=== PATIENT | male | born 1945 | race Caucasian/White ===

== ENCOUNTER 2019-01-06 20:57 | Observation (INO) | payer MEDICARE ==
[2019-01-06] MEDS ORDERED: SODIUM CHLORIDE 0.9% 1,000 ML IV STA ×2 (21:30)
[2019-01-06] MEDS ORDERED: DILTIAZEM DRIP BOLUS FROM BAG 1 MG SOLN IV ONE (21:30)
[2019-01-06] MEDS ORDERED: DILTIAZEM 125 MG in SODIUM CHLORIDE 0.9% 100 ML IV SCH (21:30)
[2019-01-06 22:09] LABS: Basophils % (A) 1 %; Eosinophils # (A) 0.1 k/uL (0-0.7); Eosinophils % (A) 1 %; Lymphocytes # (A) 1.6 k/uL (1.0-4.8); Lymphocytes % (A) 28 %; MCH 29.4 pg (25.0-35.0); MCHC 31.7 g/dL (31.0-37.0); MCV 92.9 fL (80.0-100.0); Mean Platelet Volume 8.7; Monocytes # (A) 0.5 k/uL (0-1.0); Monocytes % (A) 9 %; Neutrophils # (A) 3.3 k/uL (1.3-7.7); Neutrophils % (A) 59 %; Platelet Count 132 k/uL (150-450); RBC 4.42 m/uL (4.30-5.90); RDW 12.8 % (11.5-15.5); WBC 5.6 k/uL (3.8-10.6)
--- NOTE | 2019-01-06 22:22 | ED ---
Arrhythmia/Palpitations HPI - General Chief Complaint: Arrhythmia/Palpitations Stated Complaint: Tachycardia Time Seen by Provider: 01/06/19 21:29 Source: patient, RN notes reviewed, old records reviewed Mode of arrival: wheelchair Limitations: no limitations - History of Present Illness Initial Comments: This is a 73-year-old male the ER for evaluation he does have history of H for ablation presenting with fluctuating blood pressure and heart rate. Patient just moved to town, is going to increased stress with family , patient's just . No recent change in medications. Patient is on 49. No blood thinners occasional does take aspirin. Patient has no chest pain or shortness of breath. Also has sleep apnea on CPAP, no current changes with either of the above. Patient states she's been having significant episodes of palpitations and elevated heart rate, patient feels like heart is racing currently MD Complaint: rapid heart beat, "heart racing" -: days(s) Context: occurred during rest Arrhythmia History: atrial fibrillation Associated Symptoms: denies other symptoms Treatments Prior to Arrival: other - Related Data Home Medications Medication Instructions Recorded Confirmed Flecainide [Tambocor] 50 mg PO BID 01/06/19 01/06/19 Allergies Allergy/AdvReac Type Severity Reaction Status Date / Time Penicillins Allergy Rash/Hives Verified 01/06/19 21:23 Review of Systems ROS Statement: Those systems with pertinent positive or pertinent negative responses have been documented in the HPI. ROS Other: All systems not noted in ROS Statement are negative. Past Medical History Past Medical History: Atrial Fibrillation, Coronary Artery Disease (CAD), Cancer, Prostate Disorder, Sleep Apnea/CPAP/BIPAP History of Any Multi-Drug Resistant Organisms: None Reported Additional Past Surgical History / Comment(s): prostate CA, right knee cyst, cyst off back Past Psychological History: No Psychological Hx Reported Smoking Status: Former smoker Past Alcohol Use History: Occasional Past Drug Use History: None Reported General Exam Limitations: no limitations General appearance: alert, in no apparent distress, anxious Head exam: Present: atraumatic, normocephalic, normal inspection Eye exam: Present: normal appearance, PERRL, EOMI. Absent: scleral icterus, conjunctival injection, periorbital swelling ENT exam: Present: normal exam, mucous membranes moist Neck exam: Present: normal inspection. Absent: tenderness, meningismus, lymphadenopathy Respiratory exam: Present: normal lung sounds bilaterally. Absent: respiratory distress, wheezes, rales, rhonchi, stridor Cardiovascular Exam: Present: tachycardia, irregular rhythm, normal heart sounds. Absent: systolic murmur, diastolic murmur, rubs, gallop, clicks GI/Abdominal exam: Present: soft, normal bowel sounds. Absent: distended, tenderness, guarding, rebound, rigid Extremities exam: Present: normal inspection, full ROM, normal capillary refill. Absent: tenderness, pedal edema, joint swelling, calf tenderness Back exam: Present: normal inspection Neurological exam: Present: alert, oriented X3, CN II-XII intact Psychiatric exam: Present: normal affect, normal mood Skin exam: Present: warm, dry, intact, normal color. Absent: rash Course Vital Signs 01/06/19 20:59 Temperature 98.2 F Pulse Rate 136 H Respiratory 18 Rate Blood Pressure 122/80 O2 Sat by Pulse 100 Oximetry - Reevaluation(s) Reevaluation #1: 01/06/19 23:36 Medical records reviewed Reevaluation #2: 01/06/19 23:36 Patient remains in sinus rhythm EKG Findings - EKG Comments: EKG Findings:: EKG shows a flutter rate of 71 DE 186 QRS 100 QTc 432 Medical Decision Making - Medical Decision Making 73 male the ER with history of atrial fibrillation, patient in nature for ablation with rapid rate prior to arrival, patient cardioverted himself, he is on antiarrhythmic. 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 he just moved to town last week - Lab Data Result diagrams: 01/06/19 21:58 01/06/19 21:58 Lab Results 01/06/19 01/06/19 01/06/19 Range/Units 21:58 21:58 21:58 WBC 5.6 (3.8-10.6) k/uL RBC 4.42 (4.30-5.90) m/uL Hgb 13.0 (13.0-17.5) gm/dL Hct 41.0 (39.0-53.0) % MCV 92.9 (80.0-100.0) fL MCH 29.4 (25.0-35.0) pg MCHC 31.7 (31.0-37.0) g/dL RDW 12.8 (11.5-15.5) % Plt Count 132 L (150-450) k/uL Neutrophils % 59 % Lymphocytes % 28 % Monocytes % 9 % Eosinophils % 1 % Basophils % 1 % Neutrophils # 3.3 (1.3-7.7) k/uL Lymphocytes # 1.6 (1.0-4.8) k/uL Monocytes # 0.5 (0-1.0) k/uL Eosinophils # 0.1 (0-0.7) k/uL Basophils # 0.0 (0-0.2) k/uL PT 11.1 (9.0-12.0) sec INR 1.1 (<1.2) APTT 27.0 (22.0-30.0) sec Sodium 141 (137-145) mmol/L Potassium 4.0 (3.5-5.1) mmol/L Chloride 108 H (98-107) mmol/L Carbon Dioxide 24 (22-30) mmol/L Anion Gap 9 mmol/L BUN 21 H (9-20) mg/dL Creatinine 0.81 (0.66-1.25) mg/dL Est GFR (CKD-EPI)AfAm >90 (>60 ml/min/1.73 sqM) Est GFR (CKD-EPI)NonAf 88 (>60 ml/min/1.73 sqM) Glucose 113 H (74-99) mg/dL Calcium 9.1 (8.4-10.2) mg/dL Magnesium 2.3 (1.6-2.3) mg/dL Total Bilirubin 0.4 (0.2-1.3) mg/dL AST 20 (17-59) U/L ALT 19 L (21-72) U/L Alkaline Phosphatase 41 (38-126) U/L Creatine Kinase 95 (55-170) U/L Troponin I (0.000-0.034) ng/mL Total Protein 6.2 L (6.3-8.2) g/dL Albumin 3.9 (3.5-5.0) g/dL TSH 2.460 (0.465-4.680) mIU/L 01/06/19 Range/Units 21:58 WBC (3.8-10.6) k/uL RBC (4.30-5.90) m/uL Hgb (13.0-17.5) gm/dL Hct (39.0-53.0) % MCV (80.0-100.0) fL MCH (25.0-35.0) pg MCHC (31.0-37.0) g/dL RDW (11.5-15.5) % Plt Count (150-450) k/uL Neutrophils % % Lymphocytes % % Monocytes % % Eosinophils % % Basophils % % Neutrophils # (1.3-7.7) k/uL Lymphocytes # (1.0-4.8) k/uL Monocytes # (0-1.0) k/uL Eosinophils # (0-0.7) k/uL Basophils # (0-0.2) k/uL PT (9.0-12.0) sec INR (<1.2) APTT (22.0-30.0) sec Sodium (137-145) mmol/L Potassium (3.5-5.1) mmol/L Chloride (98-107) mmol/L Carbon Dioxide (22-30) mmol/L Anion Gap mmol/L BUN (9-20) mg/dL Creatinine (0.66-1.25) mg/dL Est GFR (CKD-EPI)AfAm (>60 ml/min/1.73 sqM) Est GFR (CKD-EPI)NonAf (>60 ml/min/1.73 sqM) Glucose (74-99) mg/dL Calcium (8.4-10.2) mg/dL Magnesium (1.6-2.3) mg/dL Total Bilirubin (0.2-1.3) mg/dL AST (17-59) U/L ALT (21-72) U/L Alkaline Phosphatase (38-126) U/L Creatine Kinase (55-170) U/L Troponin I <0.012 (0.000-0.034) ng/mL Total Protein (6.3-8.2) g/dL Albumin (3.5-5.0) g/dL TSH (0.465-4.680) mIU/L - Radiology Data Radiology results: report reviewed (Chest x-rays negative for acute disease), im age reviewed Disposition Clinical Impression: Atrial fibrillation, Tachycardia, Palpitations Disposition: ADMITTED IP TO THIS [facility] Condition: Good Is patient prescribed a controlled substance at d/c from ED?: No Referrals: None,Stated [Primary Care Provider] - 1-2 days
[2019-01-06 22:25] LABS: ALT 19 U/L (21-72); AST 20 U/L (17-59); African American GFR (CKD) >90 (>60 ml/min/1.73 sqM); Albumin 3.9 g/dL (3.5-5.0); Alkaline Phosphatase 41 U/L (38-126); Anion Gap 9 mmol/L; Blood Urea Nitrogen 21 mg/dL (9-20); Calcium 9.1 mg/dL (8.4-10.2); Carbon Dioxide 24 mmol/L (22-30); Chloride 108 mmol/L (98-107); Creatine Kinase 95 U/L (55-170); Glucose 113 mg/dL (74-99); Magnesium 2.3 mg/dL (1.6-2.3); Sodium 141 mmol/L (137-145); Total Bilirubin 0.4 mg/dL (0.2-1.3); Total Protein 6.2 g/dL (6.3-8.2)
--- NOTE | 2019-01-06 22:25 | XR ---
EXAM: XR Chest, 2 Views CLINICAL HISTORY: ITS.REASON XR Reason: dysrhythmia TECHNIQUE: Frontal and lateral views of the chest. COMPARISON: No relevant prior studies available. FINDINGS: Lungs: Unremarkable. No consolidation. Pleural space: Unremarkable. No pneumothorax. Heart: Unremarkable. No cardiomegaly. Mediastinum: Unremarkable. Bones/joints: Unremarkable. IMPRESSION: Normal chest x-rays.
[2019-01-06 22:33] LABS: INR 1.1 (<1.2); Prothrombin Time 11.1 sec (9.0-12.0)
[2019-01-06] MEDS ORDERED: NITROGLYCERIN SL TABS 0.4 MG TAB SUBLINGUAL PRN (23:37)
[2019-01-07 01:24] VITALS: BMI 23.8
[2019-01-07 01:56] LABS: Cholesterol 103 mg/dL (<200); HDL Cholesterol 44 mg/dL (40-60); LDL Cholesterol,Calculated 49 mg/dL (0-99); Triglycerides 51 mg/dL (<150)
[2019-01-07] MEDS ORDERED: METOPROLOL TARTRATE 50 MG TAB PO SCH (09:00)
[2019-01-07] MEDS ORDERED: ASPIRIN 325 MG TAB PO SCH (09:00)
[2019-01-07] MEDS: SODIUM CHLORIDE 0.9% 1,000 ML IV SCH ×3 (10:05→22:01)
--- NOTE | 2019-01-07 12:11 | P.CRDCN ---
History of Present Illness Consult date: 01/07/19 Requesting physician: Pierre Nielsen Consult reason: atrial flutter Chief complaint: Palpitations History of present illness: Physical pleasant 73-year-old gentleman with history of atrial fibrillation, paroxysmal, for the past 5 years the patient has been taking flecainide 50 mg one tablet by mouth twice a day which was initiated in [place] where he lived 6 months of the year. The patient states he had been taking Pradaxa, this was discontinued at that time by the EP clamp truck driver in [place]. Patient has remained in normal sinus rhythm over the past years. He has no history of hypertension, nondiabetic, no hyperlipidemia, he is a nonsmoker and rarely drinks alcohol. His was diagnosed with cancer one year ago, patient recently lost her approximately 8 weeks ago. He states that he has been grieving significantly over the last of his . Patient noticed himself over the past 10-8 days or so to be in and out of atrial fibrillation. EKG on arrival here showed atrial flutter with rapid ventricular response, atypical, he has converted to normal sinus rhythm and is in a normal sinus rhythm this morning. Blood pressure 110/60 with a heart rate in the 60s, 99% on room air. Blood cell count 5.6, hemoglobin 13, platelet count 132. Sodium 141, potassium 4.0, BUN 21 and creatinine 0.8. TSH level II.4, troponins are negative 3. At the time of my examination this morning, patient has no complaints, he is in normal sinus rhythm at this time. Past Medical History Past Medical History: Atrial Fibrillation, Cancer, Prostate Disorder, Sleep Apnea/CPAP/BIPAP History of Any Multi-Drug Resistant Organisms: None Reported Additional Past Surgical History / Comment(s): prostate CA, right knee cyst, cyst off back. Past Psychological History: No Psychological Hx Reported Smoking Status: Never smoker Past Alcohol Use History: Occasional Additional Past Alcohol Use History / Comment(s): smoked as a teenager. states a social drinker. Past Drug Use History: None Reported Medications and Allergies Home Medications Medication Instructions Recorded Confirmed Type Flecainide [Tambocor] 50 mg PO BID 01/06/19 01/06/19 History Allergies Allergy/AdvReac Type Severity Reaction Status Date / Time Penicillins Allergy Rash/Hives Verified 01/06/19 21:23 Physical Exam Vitals: Vital Signs Temp Pulse Pulse Resp BP BP Pulse Ox 01/07/19 08:30 97.8 F 67 17 104/51 95 01/07/19 04:26 98.2 F 50 L 15 106/60 99 01/07/19 01:01 94 16 114/73 100 01/07/19 00:39 53 L 20 104/68 98 01/06/19 22:06 124 H 01/06/19 20:59 98.2 F 136 H 18 122/80 100 Intake and Output 01/06/19 01/07/19 01/07/19 22:59 06:59 14:59 Intake Total 1000 240 Output Total 600 Balance 1000 -360 Intake: Amount of Fluid Infused ( 1000 ml) Oral 240 Output: Urine 600 Other: Voiding Method Toilet Urinal # Voids 2 Weight 82.01 kg 81.2 kg PHYSICAL EXAMINATION: GENERAL: 73-year-old gentleman in no acute distress at the time of examination HEENT: Head is atraumatic, normocephalic. Pupils equal, round. Sclera anicteric. Conjunctiva are clear. Mucous membranes of the mouth are moist. Neck is supple. There is no elevated jugular venous pressure. No carotid bruit is heard. HEART EXAMINATION: Heart S1, S2 normal. No murmur or gallop heard. CHEST EXAMINATION: Lungs are clear to auscultation and precussion. No chest wall tenderness is noted on palpation or with deep breathing. ABDOMEN: Soft, nontender. Bowel sounds are heard. No organomegaly noted. EXTREMITIES: 2+ peripheral pulses with no evidence of peripheral edema and no calf tenderness noted. NEUROLOGIC patient is awake, alert and oriented 3 .] . Results 01/06/19 21:58 01/06/19 21:58 Cardiac Enzymes 01/06/19 01/06/19 01/07/19 Range/Units 21:58 21:58 04:05 AST 20 (17-59) U/L Troponin I <0.012 <0.012 (0.000-0.034) ng/mL 01/07/19 Range/Units 09:05 AST (17-59) U/L Troponin I <0.012 (0.000-0.034) ng/mL Coagulation 01/06/19 Range/Units 21:58 PT 11.1 (9.0-12.0) sec APTT 27.0 (22.0-30.0) sec Lipids 01/06/19 Range/Units 21:58 Triglycerides 51 (<150) mg/dL Cholesterol 103 (<200) mg/dL HDL Cholesterol 44 (40-60) mg/dL CBC 01/06/19 Range/Units 21:58 WBC 5.6 (3.8-10.6) k/uL RBC 4.42 (4.30-5.90) m/uL Hgb 13.0 (13.0-17.5) gm/dL Hct 41.0 (39.0-53.0) % Plt Count 132 L (150-450) k/uL Comprehensive Metabolic Panel 01/06/19 Range/Units 21:58 Sodium 141 (137-145) mmol/L Potassium 4.0 (3.5-5.1) mmol/L Chloride 108 H (98-107) mmol/L Carbon Dioxide 24 (22-30) mmol/L BUN 21 H (9-20) mg/dL Creatinine 0.81 (0.66-1.25) mg/dL Glucose 113 H (74-99) mg/dL Calcium 9.1 (8.4-10.2) mg/dL AST 20 (17-59) U/L ALT 19 L (21-72) U/L Alkaline Phosphatase 41 (38-126) U/L Total Protein 6.2 L (6.3-8.2) g/dL Albumin 3.9 (3.5-5.0) g/dL Current Medications Generic Name Dose Route Start Last Admin Trade Name Freq PRN Reason Stop Dose Admin Apixaban 5 mg 01/07/19 12:00 Eliquis PO BID SIMBA Flecainide Acetate 100 mg 01/07/19 12:00 Tambocor PO Q12HR SIMBA Sodium Chloride 1,000 mls @ 100 mls/hr 01/06/19 23:45 01/07/19 10:26 Saline 0.9% IV 100 mls/hr .Q10H SIMBA Administration Nitroglycerin 0.4 mg 01/06/19 23:37 Nitrostat SUBLINGUAL Q5M PRN Chest Pain Intake and Output 01/06/19 01/07/19 01/07/19 22:59 06:59 14:59 Intake Total 1000 240 Output Total 600 Balance 1000 -360 Intake: Amount of Fluid Infused ( 1000 ml) Oral 240 Output: Urine 600 Other: Voiding Method Toilet Urinal # Voids 2 Weight 82.01 kg 81.2 kg 01/06/19 21:58 01/06/19 21:58 EKG Interpretations (text) EKG on presentation here showed atrial flutter with rapid ventricular response, patient currently in normal sinus rhythm. Assessment and Plan Plan: Assessment and plan #1 atypical atrial flutter, currently in normal sinus rhythm #2 paroxysmal atrial fibrillation #3 recent loss of spouse Plan We will obtain an echocardiogram with Doppler study. TSH was normal. Increase flexion night dose to 100 mg by mouth twice a day. We did have a lengthy discussion with the patient regarding anticoagulation for stroke prevention. We will start the patient on Eliquis 5 mg one tablet by mouth twice a day. DNP note has been reviewed, I agree with a documented findings and plan of care. Patient was seen and examined.
[2019-01-07] MEDS: FLECAINIDE 50 MG TAB PO SCH ×2 (12:17→22:01)
[2019-01-07] MEDS: APIXABAN 5 MG TAB PO SCH ×2 (12:18→22:01)
--- NOTE | 2019-01-07 18:28 | HP ---
HISTORY AND PHYSICAL CHIEF COMPLAINT: Rapid heart beating. HISTORY OF PRESENT ILLNESS: This gentleman came to the emergency room because he noticed his heart was beating fast. It was going anywhere from 50-130 beats per minute. He has a history of intermittent atrial fibrillation and he is not on any anticoagulants. His doctor in [place] gave him flecainide 50 mg b.i.d. He has never had rheumatic heart disease, murmurs, angina, infarctions, heart failure, orthopnea, PND, diabetes, etc. REVIEW OF SYSTEMS: Otherwise unremarkable. He has had no TIAs, CVAs, cough, hemoptysis, chest pain, abdominal pain, nausea, vomiting, hematemesis, melena, hematochezia, jaundice, hepatitis, cirrhosis, hematuria, frequency, urgency, renal failure, diabetes, etc. Past medical history, family history and personal and social histories reveal that he has a history of sleep apnea. He is ALLERGIC to penicillin. He has had no surgery except for removal of his prostate. He has a family history of heart disease on his mother's side. He does not smoke. PHYSICAL EXAM: Blood pressure is 142/86 with a pulse of 78, irregularly irregular. Respiratory rate is 26. He is afebrile. In general, he appeared to be well developed, well nourished, no acute distress. Skin color is normal, skin is warm and dry. Lymph nodes not enlarged. Head, ears, eyes, nose, mouth, and throat were normal. Neck veins not distended. Thyroid is not enlarged. Chest is clear. Cardiac exam demonstrates what sounds like atrial fibrillation and there are no murmurs or extra sounds. Abdomen is soft, nontender without visceromegaly or masses. Bowel sounds present. Extremities normal. Neurologically he is intact. He is admitted to the hospital with diagnoses: 1. Intermittent episodes of atrial fibrillation. 2. History of carcinoma of the prostate. PLAN: 1. Bed rest. 2. IV fluids. 3. Echocardiogram. 4. Refer to Cardiology. 5. [place] anticoagulation likely with apixaban. MMODL / IJN: [id number] /
--- NOTE | 2019-01-07 19:10 | PN ---
PROGRESS NOTE CHIEF COMPLAINT: Atrial fibrillation. HISTORY OF PRESENT ILLNESS: This gentleman is doing well. He feels fine. He has had no pain, shortness of breath, etc. PHYSICAL EXAM: Chest is clear. Cardiac exam seems unremarkable and no murmurs. The abdomen is soft and nontender. Extremities are normal. Neurologically he is intact. IMPRESSION: Intermittent atrial fibrillation. PLAN: 1. Echocardiogram. 2. Cardiology consult. 3. Anticoagulate after his cardiology evaluation. MMODL / IJN: [id number] /
[2019-01-08] MEDS: APIXABAN 5 MG TAB PO SCH (09:02)
[2019-01-08] MEDS: FLECAINIDE 50 MG TAB PO SCH (09:02)
[2019-01-08] MEDS: SODIUM CHLORIDE 0.9% 1,000 ML IV SCH (09:03)
[2019-01-08 10:15] VITALS: TEMP 97.3
--- NOTE | 2019-01-08 11:04 | P.PN ---
Subjective Progress Note Date: 01/08/19 This is a pleasant 73-year-old gentleman with history of atrial fibrillation, paroxysmal, for the past 5 years the patient has been taking flecainide 50 mg one tablet by mouth twice a day which was initiated in [place] where he lived 6 months of the year. The patient states he had been taking Pradaxa, this was discontinued at that time by the EP bandoleer straightener stamper in [place]. Patient has remained in normal sinus rhythm over the past years. He has no history of hypertension, nondiabetic, no hyperlipidemia, he is a nonsmoker and rarely drinks alcohol. His was diagnosed with cancer one year ago, patient recently lost her approximately 8 weeks ago. He states that he has been grieving significantly over the last of his . Patient noticed himself over the past 10-8 days or so to be in and out of atrial fibrillation. EKG on arrival here showed atrial flutter with rapid ventricular response, atypical, he has converted to normal sinus rhythm and is in a normal sinus rhythm this mo rning. Blood pressure 110/60 with a heart rate in the 60s, 99% on room air. Blood cell count 5.6, hemoglobin 13, platelet count 132. Sodium 141, potassium 4.0, BUN 21 and creatinine 0.8. TSH level II.4, troponins are negative 3. At the time of my examination this morning, patient has no complaints, he is in normal sinus rhythm at this time. 01/08/2019 Patient has been in and out of atrial flutter, this morning was in a rapid atrial flutter converted back to normal sinus rhythm and has been remaining in normal sinus. Blood pressure this morning 116/70 with a oxygen saturation of 98%. Echocardiogram with Doppler study remains pending. We will continue the patient on Eliquis along with flecainide 100 twice a day, continue to monitor until lunchtime today, if the patient remains in normal sinus rhythm he may be able to be discharged home from our perspective. Dr. Meredith did have a discussion with the patient regarding EP evaluation and possible ablation, he does not wish to have this at this time. Objective - Vital Signs Vital signs: Vital Signs Temp 97.3 F L 01/08/19 08:00 Pulse 130 H 01/08/19 08:00 Resp 16 01/08/19 08:00 BP 116/71 01/08/19 08:00 Pulse Ox 98 01/08/19 08:00 Intake & Output 01/07/19 01/08/19 01/08/19 18:59 06:59 18:59 Intake Total 720 Output Total 1200 600 Balance -480 -600 Weight 81.8 kg Intake: Oral 720 Output: Urine 1200 600 Other: Voiding Method Toilet Urinal # Voids 1 - Exam PHYSICAL EXAMINATION: GENERAL: 73-year-old gentleman in no acute distress at the time of examination HEENT: Head is atraumatic, normocephalic. Pupils equal, round. Sclera anicteric. Conjunctiva are clear. Mucous membranes of the mouth are moist. Neck is supple. There is no elevated jugular venous pressure. No carotid bruit is heard. HEART EXAMINATION: Heart S1, S2 normal. No murmur or gallop heard. CHEST EXAMINATION: Lungs are clear to auscultation and precussion. No chest wall tenderness is noted on palpation or with deep breathing. ABDOMEN: Soft, nontender. Bowel sounds are heard. No organomegaly noted. EXTREMITIES: 2+ peripheral pulses with no evidence of peripheral edema and no calf tenderness noted. NEUROLOGIC patient is awake, alert and oriented 3 .] - Labs CBC & Chem 7: 01/06/19 21:58 01/06/19 21:58 Assessment and Plan Plan: Assessment and plan #1 atypical atrial flutter, currently in normal sinus rhythm #2 paroxysmal atrial fibrillation #3 recent loss of spouse Plan Echocardiogram with Doppler study remains pending. We will continue the patient on flecainide 100 mg by mouth twice a day along with Eliquis 5 mg one tablet by mouth twice a day. If his rhythm remains stable, and he continues to be in normal sinus rhythm this afternoon, he may be able to be discharged home to follow-up with Dr. Meredith in the office. DNP note has been reviewed, I agree with a documented findings and plan of care. Patient was seen and examined.
--- NOTE | 2019-01-08 11:33 | ECHOF ---
Referral Reason:AF MEASUREMENTS -------- HEIGHT: 185.4 cm WEIGHT: 81.6 kg BP: 109/57 RVIDd: 3.5 cm (< 3.3) IVSd: 1.2 cm (0.6 - 1.1) LVIDd: 3.1 cm (3.9 - 5.3) LVPWd: 1.2 cm (0.6 - 1.1) IVSs: 1.6 cm LVIDs: 2.5 cm LVPWs: 1.6 cm LA Diam: 3.4 cm (2.7 - 3.8) LAESV Index (A-L): 26.31 ml/m Ao Diam: 3.7 cm (2.0 - 3.7) AV Cusp: 2.4 cm (1.5 - 2.6) MV EXCURSION: 12.148 mm (> 18.000) MV EF SLOPE: 108 mm/s (70 - 150) EPSS: 0.4 cm MV E Trent: 1.12 m/s MV DecT: 74 ms MV A Trent: 0.96 m/s MV E/A Ratio: 1.17 RAP: 5.00 mmHg RVSP: 31.78 mmHg FINDINGS -------- Resting tachycardia (HR>100bpm). This was a technically good study. The left ventricular size is normal. There is borderline concentric left ventricular hypertrophy. Overall left ventricular systolic function is normal with, an EF between 60 - 65 %. The right ventricle is normal in size. Normal LA size by volume 22+/-6 ml/m2. The right atrium is normal in size. Interatrial and interventricular septum intact. The aortic valve is trileaflet and appears structurally normal. Mild mitral regurgitation is present. Mild tricuspid regurgitation present. Right ventricular systolic pressure is normal at < 35 mmHg. There is no pulmonic regurgitation present. The aortic root size is normal. IVC Not well visulized. There is no pericardial effusion. CONCLUSIONS -------- 1. Resting tachycardia (HR>100bpm). 2. This was a technically good study. 3. The left ventricular size is normal. 4. There is borderline concentric left ventricular hypertrophy. 5. Overall left ventricular systolic function is normal with, an EF between 60 - 65 %. 6. The right ventricle is normal in size. 7. Normal LA size by volume 22+/-6 ml/m2. 8. The right atrium is normal in size. 9. Interatrial and interventricular septum intact. 10. The aortic valve is trileaflet and appears structurally normal. 11. Mild mitral regurgitation is present. 12. Mild tricuspid regurgitation present. 13. Right ventricular systolic pressure is normal at < 35 mmHg. 14. There is no pulmonic regurgitation present. 15. The aortic root size is normal. 16. IVC Not well visulized. 17. There is no pericardial effusion. CLAY DIGGER: Federica Brewster RDCS
[2019-01-08 13:32] VITALS: BP 126/60; PULSE 64; RESP 18
--- NOTE | 2019-01-08 22:15 | DS ---
DISCHARGE SUMMARY CHIEF COMPLAINT: Rapid heart beating. HISTORY OF PRESENT ILLNESS AND PHYSICAL EXAM: Details of this man's history and physical can be found in the initial workup. LABORATORY STUDIES: While he was in the hospital, he had laboratory studies, details of which can be found in the laboratory section of his chart. COURSE IN HOSPITAL: After admission, he was placed on bedrest, started on intravenous fluids and continuous cardiac monitoring. He was seen by Cardiology. Essentially all of his studies were unremarkable. Cardiology felt that he should increase his flecainide and agreed that he should be on long-term anticoagulation for nonvalvular atrial fibrillation. He was doing well it was felt he could go home on . He will go home on flecainide 100 mg at bedtime and apixaban 5 mg twice a day. He will follow up with Cardiology and with me. FINAL DIAGNOSES: Intermittent atrial fibrillation. OPERATIONS: None. CONSULTATION: Cardiology. He is improved. MMODL / IJN: [id number] /
== END 2019-01-08 14:05 | disposition home or self-care (01) ==
LOC: EC 20:57 → 3SCARD 23:38
PROVIDERS: ADMIT Family Medicine; ATTEND Family Medicine
DX: I48.0 Paroxysmal atrial fibrillation (principal); I48.4 Atypical atrial flutter; G47.30 Sleep apnea, unspecified; I25.10 Atherosclerotic heart disease of native coronary artery without angina pectoris; Z79.899 Other long term (current) drug therapy; Z88.0 Allergy status to penicillin; Z85.46 Personal history of malignant neoplasm of prostate; Z87.891 Personal history of nicotine dependence; Z99.89 Dependence on other enabling machines and devices; Z82.49 Family history of ischemic heart disease and other diseases of the circulatory system
CPT/HCPCS: 96360; 96361; 99285; 36415; 93005; 93306; 84439; 80061; 80053; 82550; 83735; 84443; 84484 ×2; 85025; 85610; 85730; 71046; G0378 ×3